=== PATIENT | female | born 1935 | race Caucasian/White ===

== ENCOUNTER → 2017-08-23 | Outpatient (CLI) | payer OTHER, MEDICARE ==
[~2017-08-23] MED LIST: IOPAMIDOL (ISOVUE-300) 100 ML BTL ONE
== END ==
LOC: FIMAGING 08:34
PROVIDERS: ATTEND Internal Medicine Gastroenterology
DX: K59.00 Constipation, unspecified (principal); K57.30 Diverticulosis of large intestine without perforation or abscess without bleeding
CPT/HCPCS: 74177; Q9967

== ENCOUNTER 2018-09-03 16:40 | Emergency (ER) | payer OTHER, MEDICARE ==
--- NOTE | 2018-09-03 16:55 | EDPHY ---
H & P Stated Complaint: fall hit head on eliquis denies loc - Personal History Current Tetanus Diphtheria and Acellular Pertussis (TDAP): No - Medical/Surgical History Hx Asthma: No Hx Chronic Respiratory Disease: No Hx Diabetes: Yes Hx Cardiac Disease: Yes Hx Renal Disease: No Hx Cirrhosis: No Hx Alcoholism: No Hx HIV/AIDS: No Hx Splenectomy or Spleen Trauma: No Other PMH: PRE DIABETIC,HBP, LOW THYROID,A FIB - Social History Smoking Status: Former smoker Time Seen by Provider: 09/03/18 16:55 Constitutional: Initial Vital Signs Temperature (C) 36.6 C 09/03/18 16:51 Heart Rate 66 09/03/18 16:51 Respiratory Rate 17 09/03/18 16:51 Blood Pressure 164/79 H 09/03/18 16:51 O2 Sat (%) 95 09/03/18 16:51 O2 Delivery Mode Room Air Allergies/Adverse Reactions: No Known Allergies Allergy (Verified 09/03/18 16:47) Home Medications: Medication Instructions Recorded Irbesartan/Hydrochlorothiazide 1 each PO DAILY 06/28/11 [Avalide 150-12.5 mg Tablet] Calcium Citrate W/Vit D [Citracal 630 mg PO BIDMEAL 04/09/12 + D (OTC)] Levothyroxine [Synthroid 75 mcg 75 mcg PO DAILY06 04/09/12 (RX)] Multivit-Min/FA/Lycopene/Lut 1 each PO DAILY 04/09/12 [Centrum Silver Tablet] Simvastatin [Zocor 20 mg (RX)] 20 mg PO HS 04/09/12 C/E/Zn/Cu/OM3/DHA/EPA/LUT/ZEAX 1 each PO BID 04/10/12 [Preservision Areds 2 Softgel] Amiodarone HCl 09/03/18 Aspirin 81mg (*) 09/03/18 Deplin 09/03/18 Donepezil HCl 09/03/18 Eliquis 09/03/18 Medical Decision Making - Diagnostics Imaging: Discussed imaging studies w/ call center rn Radiologist, I viewed and interpreted images myself - Diagnostics Imaging Results: Imaging Impressions Head CT 09/03/18 16:55 Impression: 1. 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 2. Scalp hematoma with no associated calvarial fracture or intracranial hemorrhage. 3. See above report for additional findings. Results called and discussed with Farzad Galicia MD on 09/03/2018 at 18:44. Procedures: Laceration Repair Verbal consent obtained by patient. Risks discussed, including but not limited to infection, pain, retained foreign body, need for additional repair, poor cosmetic result, tendon damage, nerve damage, poor wound healing, vascular damage. Alternatives to repair discussed. [place] protocol used to establish correct patient, procedure, equipment, media production support manager, and site. Anesthesia obtained by local infiltration. Anesthetized with 0.5% bupivacaine with epinephrine. Laceration location right parietal scalp, length 1.5 cm, depth 2 mm, Repair type simple. Patient was prepped and draped in usual sterile fashion. Hemostasis achieved with direct pressure. Wound explored through full range of motion and entire depth of wound probed and visualized with gloved finger. No suspicion for nerve damage, tendon damage, underlying fracture, vascular damage, foreign body, or contamination. Area was cleansed with Shur-Clens and irrigated with sterile saline as per protocol. No foreign body or material removed. Repair method elvira. For of sutures placed. Well aligned, closely approximated. wound was dressed with bacitracin, pressure dressing. Patient tolerated well with no immediate complications. Wound care: Clean and dry x 24 hours, gently clean with soap and water, cover with topical antibiotic ointment/bandage. Suture/Staple removal: 7-10 Days (Hardik Bustamante) ED Course/Re-evaluation: CHIEF COMPLAINT: Head injury, fall HISTORY OF PRESENT ILLNESS: The patient is an anticoagulated 82 y/o female with a history of atrial fibrillation. arriving with her daughters for evaluation of a head injury after a mechanical fall this afternoon. She describes pushing a cart with a heavy load outdoors in the wind. As she went around a curve, the cart tipped and brought her down with it. She struck the right side of her head on the ground. She remembers the whole incident and did not lose consciousness according to her or either daughter that witnessed the fall. She has a scalp wound, but otherwise denies any injuries or pain. No weakness, paresthesias, hip pain, abdominal pain, chest pain, extremity injuries. She is compliant with her Eliquis. REVIEW OF SYSTEMS: A comprehensive 10 system review of systems is otherwise negative aside from elements mentioned in the history of present illness and medical decision making. PHYSICAL EXAM: HR, BP, O2 Sat, RR. Temp noted General Appearance: Alert, well hydrated, appropriate, and non-toxic appearing. Head: 1cm laceration to right parietal scalp, otherwise atraumatic. Eyes: Pupils equal, round, reactive to light and accommodation, EOMI, no trauma , no injection. Ears: Clear bilaterally, no perforation, normal landmarks Nose: Atraumatic, no rhinorrhea, clear. Throat: There is no erythema or exudates, no lesions, normal tonsils, mucus membranes moist. Neck: Supple, nontender, no lymphadenopathy. Respiratory: No retractions, no distress, no wheezes, and no accessory muscle use. Lungs are clear to auscultation bilaterally. Cardiovascular: Regular rate and rhythm, no murmurs, rubs, or gallops. Good capillary refill all extremities. Gastrointestinal: Abdomen is soft, nontender, non-distended, no masses, no rebound, no guarding, no peritoneal signs. Musculoskeletal: Normal active ROM of all extremities, atraumatic. Neurological: Alert, appropriate, and interactive. The patient has nonfocal cranial nerves, motor, sensory, and cerebellar exam. Skin: No rashes, good turgor, no nodules on palpation. Past medical history: Pre-diabetes, hypertension, hypothyroidism, atrial fibrillation Past surgical history: Noncontributory Family history: Noncontributory Social history: Daughters at bedside. Lives in [place]. Retired. DIAGNOSTICS/PROCEDURES/CRITICAL CARE TIME: Head CT: negative for acute process Laceration repair by TRISHA Bustamante. DIFFERENTIAL DIAGNOSIS: The differential diagnosis for the patient's head injury included but was not limited to concussion, skull fracture, intra- parenchymal contusion, subarachnoid, subdural and epidural hematoma. MEDICAL DECISION MAKING: This is a well-appearing 82 y/o female who presents for evaluation of a head injury secondary to a mechanical fall this afternoon. She has a small 1cm laceration to the right parietal scalp, but otherwise an atraumatic and nonfocal exam. She cannot be excluded by [place] Head CT criteria due to age and anticoagulation status. Plan for head CT and wound care. CT is negative for acute process. Laceration stapled by TRISHA Bustamante. Patient will be discharged home in good condition with standard care and follow up instructions. Return precautions discussed. She and her daughters are comfortable with this plan. (Farzad Galicia) Departure - Departure Disposition: Home, Routine, Self-Care Clinical Impression: Scalp laceration Qualifiers: Encounter type: initial encounter Qualified Code(s): S01.01XA - Laceration without foreign body of scalp, initial encounter Head injury Qualifiers: Encounter type: initial encounter Qualified Code(s): S09.90XA - Unspecified injury of head, initial encounter Condition: Good Instructions: Laceration (ED), Fall Prevention for Older Adults (ED), Head Injury (ED) Additional Instructions: Return in 10 days for staple removal. Follow up with your primary care provider as needed. Return to the ED for severe pain, headache, weakness, numbness, difficulty speaking, vision changes, fever, or other worsening of condition. Referrals: Ana M Justice MD [Medical Doctor] - As per Instructions Report Scribed for: Farzad Galicia Report Scribed by: Regine Russell Date of Report: 09/03/18 Time of Report: 17:16
[2018-09-03 18:41] VITALS: BP 160/89
== END 2018-09-03 19:28 | disposition home or self-care (01) ==
PROC: 0HQ0XZZ Repair Scalp Skin, External Approach (ICD-10-PCS; principal; 2018-09-03)
DX: S01.01XA Laceration without foreign body of scalp, initial encounter (principal); R73.03 Prediabetes; I10 Essential (primary) hypertension; W01.198A Fall on same level from slipping, tripping and stumbling with subsequent striking against other object, initial encounter; Y92.480 Sidewalk as the place of occurrence of the external cause